=== PATIENT | female | born 1965 | race African-American/Black ===

== ENCOUNTER 2020-06-12 16:09 | Inpatient (IN) ==
[2020-06-12 17:58] LABS: Eosinophils % 0.5 % (0.00-10.9); Immature Granulocytes Absolute 0.06 #; Lymphocytes # 0.3 10*3/uL (1.4-4.0); Lymphocytes % 16.6 % (21.3-54.2); Mean Corpuscular HGB Conc 29.7 GM/DL (32-36); Monocytes % 4.5 % (1.7-12.7); NRBC # 0.04 10*3/uL; Neutrophils % 75.4 % (38.7-73.9); Red Blood Count 1.32 MC/CUMM (3.8-5.5)
[2020-06-12 18:04] LABS: INR 1.1; PT Patient Result 12.2 SECS (9.8-11.9); Partial Thromboplastin Time 34.5 SECS (23.9-33.8)
[2020-06-12 18:13] LABS: Albumin 2.8 G/DL (3.4-5.0); Bilirubin,Total 0.7 MG/DL (0.2-1.0); Calcium 8.5 MG/DL (8.5-10.1); Hematocrit 12.8 VOL% (35.7-47.0); Hemoglobin 3.8 GM/DL (12.0-16.0); Potassium 3.7 MMOL/L (3.5-5.1); Total Protein 5.9 G/DL (6.4-8.3)
[2020-06-12 18:14] LABS: Platelet Count 24 T/CUMM (130-400)
[2020-06-12] MEDS ORDERED: ONDANSETRON 4 MG/2 ML VIAL IV STA (18:14)
[2020-06-12] MEDS ORDERED: FUROSEMIDE 40 MG/4 ML VIAL IV STA (18:14)
[2020-06-12] MEDS ORDERED: SODIUM CHLORIDE 0.9% 500 ML IV STA (18:17)
[2020-06-12 18:29] LABS: Anisocytosis 1+; Band Neutrophils 2 % (0-10); Hypochromasia 3+; Lymphocytes 17 % (20-55); Segmented Neutrophils 77 % (50-85); Total Cells Counted 100
[2020-06-12 18:30] LABS: Basophilic Stippling Few; Platelet Estimate Decreased; Polychromasia 1+; Tear Drop Cells Few
[2020-06-12 18:34] LABS: Troponin I < 0.015 NG/ML (0.00-0.045)
[2020-06-12] MEDS ORDERED: SODIUM CHLORIDE 0.9% 1,000 ML IV PRN (19:11)
[2020-06-12] MEDS ORDERED: GLUCAGON 1 MG VIAL IM PRN ×2 (19:13)
[2020-06-12] MEDS ORDERED: DEXTROSE 50% 25 GM/50 ML VIAL IV PRN ×2 (19:13)
[2020-06-12 21:38] LABS: Bacteria,Urine Occasional /HPF (Few); Bilirubin,Urine Negative (Negative); Blood, Urine Negative (Negative); Glucose,Urine (UA) Negative (Negative); Hyaline Casts,Urine 3 /LPF (0-3); Ketones,Urine Negative (Negative); Mucus,Urine Occasional /LPF (Occasional); Nitrite,Urine Negative (Negative); Protein,Urine Negative; RBC,Urine 1 /HPF (0-4); Squamous Epithelial Cell,Urine Occasional /HPF (0-10); Urine Appearance CLEAR (Clear); Urine Color Straw (Yellow); Urine Specific Gravity 1.011 (1.001-1.035); Urine Urobilinogen < 2.0 EU/DL (0.2-1.0); WBC,Urine 1 /HPF (0-6)
[2020-06-12] MEDS: INSULIN LISPRO 100 UNIT/ML SUBCUT SCH (23:30)
[2020-06-13] MEDS: oxyCODONE ER 20 MG TABLET PO SCH ×3 (00:28→21:00)
[2020-06-13 05:10] LABS: Basophils % 0.4 % (0.0-0.8); Eosinophils % 0.4 % (0.00-10.9); Hematocrit 19.5 VOL% (35.7-47.0); Immature Granulocytes % 2.6 %; Immature Granulocytes Absolute 0.06 #; Lymphocytes # 0.4 10*3/uL (1.4-4.0); Lymphocytes % 17.4 % (21.3-54.2); Mean Corpuscular HGB Conc 31.8 GM/DL (32-36); Mean Corpuscular Volume 93.8 FL (87-102); Monocytes % 5.7 % (1.7-12.7); NRBC # 0.11 10*3/uL; Neutrophils % 73.5 % (38.7-73.9); Red Cell Distribution Width 19.2 % (9.3-17.3); White Blood Count 2.3 T/CUMM (4-12)
[2020-06-13 05:12] LABS: Red Blood Count 2.08 MC/CUMM (3.8-5.5)
[2020-06-13 05:14] LABS: Hemoglobin 6.2 GM/DL (12.0-16.0); Platelet Count 25 T/CUMM (130-400)
[2020-06-13 05:30] LABS: Eosinophils 1 % (0-10); Hypochromasia 2+; Lymphocytes 10 % (20-55); Microcytosis 1+; Nucleated Red Blood Cells 8 (0-5); Platelet Estimate Decreased; Segmented Neutrophils 80 % (50-85); Total Cells Counted 100
[2020-06-13 05:51] LABS: Calcium 8.6 MG/DL (8.5-10.1); Osmolality,Calculated 273.8 MOS/KG (273-304); Potassium 3.3 MMOL/L (3.5-5.1); Thyroid Stimulating Hormone 10.4 uIU/ml (0.358-3.74)
[2020-06-13] MEDS ORDERED: SODIUM CHLORIDE 0.9% 1,000 ML IV PRN ×2 (07:05→12:32)
[2020-06-13] MEDS: LEVOTHYROXINE 50 MCG TABLET PO SCH (07:10)
[2020-06-13] MEDS: INSULIN LISPRO 100 UNIT/ML SUBCUT SCH ×4 (09:07→21:00)
[2020-06-13] MEDS: DOXAZOSIN 1 MG TABLET PO SCH (09:14)
[2020-06-13] MEDS: atenoloL 50 MG TABLET PO SCH (09:14)
[2020-06-13] MEDS: PANTOPRAZOLE 40 MG TABLET PO SCH (09:14)
[2020-06-13 09:33] LABS: Hematocrit 26.5 VOL% (35.7-47.0)
[2020-06-13 09:38] LABS: Hemoglobin 8.7 GM/DL (12.0-16.0)
[2020-06-14 06:01] LABS: Basophils % 0.7 % (0.0-0.8); Eosinophils % 0.7 % (0.00-10.9); Hematocrit 26.2 VOL% (35.7-47.0); Hemoglobin 8.4 GM/DL (12.0-16.0); Immature Granulocytes Absolute 0.03 #; Lymphocytes # 0.3 10*3/uL (1.4-4.0); Lymphocytes % 21.3 % (21.3-54.2); Mean Corpuscular HGB Conc 32.1 GM/DL (32-36); Mean Platelet Volume 10.1 FL (9.6-12.0); NRBC # 0.08 10*3/uL; Neutrophils % 69.3 % (38.7-73.9); Platelet Count 61 T/CUMM (130-400); Red Blood Count 2.88 MC/CUMM (3.8-5.5); Red Cell Distribution Width 18.6 % (9.3-17.3); White Blood Count 1.5 T/CUMM (4-12)
[2020-06-14 06:30] LABS: Albumin 2.8 G/DL (3.4-5.0); Bilirubin,Direct 0.38 MG/DL (0.0-0.20); Bilirubin,Indirect 0.4 MG/DL (0.0-1.0); Bilirubin,Total 0.8 MG/DL (0.2-1.0); Calcium 8.4 MG/DL (8.5-10.1); Free T4 (Free Thyroxine) 1.34 NG/DL (0.76-1.46); Osmolality,Calculated 273.8 MOS/KG (273-304); Potassium 3.7 MMOL/L (3.5-5.1); Total Protein 6.3 G/DL (6.4-8.3)
[2020-06-14 06:44] LABS: Eosinophils 2 % (0-10); Hypochromasia 2+; Lymphocytes 20 % (20-55); Microcytosis 1+; Nucleated Red Blood Cells 2 (0-5); Ovalocytes Slight; Platelet Estimate Decreased; Segmented Neutrophils 68 % (50-85); Total Cells Counted 100
[2020-06-14] MEDS: LEVOTHYROXINE 50 MCG TABLET PO SCH (06:44)
[2020-06-14] MEDS: INSULIN LISPRO 100 UNIT/ML SUBCUT SCH ×4 (07:53→22:12)
[2020-06-14] MEDS: atenoloL 50 MG TABLET PO SCH (13:54)
[2020-06-14] MEDS: DOXAZOSIN 1 MG TABLET PO SCH (13:54)
[2020-06-14] MEDS: PANTOPRAZOLE 40 MG TABLET PO SCH (13:54)
[2020-06-14] MEDS: oxyCODONE ER 20 MG TABLET PO SCH ×2 (13:58→22:02)
[2020-06-14] MEDS: POLYETHYLENE GLYCOL POWDER 17 GM PACK PO PRN (22:02)
[2020-06-15 06:31] LABS: Hematocrit 22.7 VOL% (35.7-47.0); Immature Granulocytes Absolute 0.03 #; Lymphocytes # 0.2 10*3/uL (1.4-4.0); Mean Corpuscular HGB Conc 31.7 GM/DL (32-36); Mean Corpuscular Volume 92.7 FL (87-102); Mean Platelet Volume 11.3 FL (9.6-12.0); NRBC # 0.07 10*3/uL; Red Blood Count 2.45 MC/CUMM (3.8-5.5); Red Cell Distribution Width 18.8 % (9.3-17.3)
[2020-06-15 06:37] LABS: Hemoglobin 7.2 GM/DL (12.0-16.0); Platelet Count 53 T/CUMM (130-400)
[2020-06-15] MEDS: LEVOTHYROXINE 50 MCG TABLET PO SCH (07:09)
[2020-06-15 08:14] LABS: Lymphocytes 50 % (20-55); Segmented Neutrophils 50 % (50-85); Total Cells Counted 100
[2020-06-15 08:15] LABS: Hypochromasia 3+; Ovalocytes Few; Platelet Estimate Decreased; Polychromasia Slight; Reactive Lymphocytes Few
[2020-06-15] MEDS: DOXAZOSIN 1 MG TABLET PO SCH (08:33)
[2020-06-15] MEDS: atenoloL 50 MG TABLET PO SCH (08:33)
[2020-06-15] MEDS: PANTOPRAZOLE 40 MG TABLET PO SCH (08:33)
[2020-06-15] MEDS: oxyCODONE IR 5 MG TABLET PO PRN (08:35)
[2020-06-15] MEDS: INSULIN LISPRO 100 UNIT/ML SUBCUT SCH ×4 (08:40→20:50)
[2020-06-15] MEDS: oxyCODONE ER 20 MG TABLET PO SCH ×2 (08:41→20:50)
[2020-06-15] MEDS ORDERED: SODIUM CHLORIDE 0.9% 1,000 ML IV PRN ×2 (08:54→10:55)
[2020-06-15] MEDS: FILGRASTIM-SNDZ 300 MCG/0.5 ML SYRINGE SUBCUT SCH (11:59)
[2020-06-15] MEDS ORDERED: ONDANSETRON 4 MG/2 ML VIAL ONE (19:56)
[2020-06-15] MEDS: ONDANSETRON 4 MG/2 ML VIAL IV PRN ×2 (19:56→22:57)
[2020-06-16 05:21] LABS: Hematocrit 31.3 VOL% (35.7-47.0); Hemoglobin 9.8 GM/DL (12.0-16.0); Immature Granulocytes Absolute 0.08 #; Lymphocytes # 0.1 10*3/uL (1.4-4.0); Mean Corpuscular HGB Conc 31.3 GM/DL (32-36); Mean Corpuscular Volume 93.4 FL (87-102); Mean Platelet Volume 10.6 FL (9.6-12.0); NRBC # 0.06 10*3/uL; Platelet Count 48 T/CUMM (130-400); Red Blood Count 3.35 MC/CUMM (3.8-5.5); Red Cell Distribution Width 17.3 % (9.3-17.3)
[2020-06-16 05:28] LABS: Calcium 7.8 MG/DL (8.5-10.1); Potassium 3.6 MMOL/L (3.5-5.1)
[2020-06-16] MEDS: LEVOTHYROXINE 50 MCG TABLET PO SCH (07:08)
[2020-06-16] MEDS: PROMETHAZINE INJ 25 MG in SODIUM CHLORIDE 0.9% 50 ML IV PRN (07:21)
[2020-06-16] MEDS: INSULIN LISPRO 100 UNIT/ML SUBCUT SCH ×4 (08:22→22:34)
[2020-06-16 08:31] LABS: Band Neutrophils 14 % (0-10); Lymphocytes 10 % (20-55); Nucleated Red Blood Cells 1 (0-5); Polychromasia Slight; Schistocytes Few; Segmented Neutrophils 66 % (50-85); Total Cells Counted 100
[2020-06-16 08:32] LABS: Hypochromasia 2+; Ovalocytes Few; Platelet Estimate Decreased
[2020-06-16] MEDS: DOXAZOSIN 1 MG TABLET PO SCH (09:45)
[2020-06-16] MEDS: atenoloL 50 MG TABLET PO SCH (09:45)
[2020-06-16] MEDS: oxyCODONE ER 20 MG TABLET PO SCH ×2 (09:45→20:48)
[2020-06-16] MEDS: PANTOPRAZOLE 40 MG TABLET PO SCH (09:45)
[2020-06-16] MEDS: CEFEPIME 1,000 MG in SODIUM CHLORIDE 0.9% 100 ML IV SCH ×3 (09:47→21:00)
[2020-06-16] MEDS: FILGRASTIM-SNDZ 300 MCG/0.5 ML SYRINGE SUBCUT SCH ×2 (12:04→13:42)
[2020-06-17] MEDS: CEFEPIME 1,000 MG in SODIUM CHLORIDE 0.9% 100 ML IV SCH ×4 (04:35→22:04)
[2020-06-17 05:48] LABS: Basophils % 0.8 % (0.0-0.8); Eosinophils % 0.8 % (0.00-10.9); Hematocrit 32.2 VOL% (35.7-47.0); Hemoglobin 10.2 GM/DL (12.0-16.0); Immature Granulocytes % 19.7 %; Immature Granulocytes Absolute 0.24 #; Lymphocytes # 0.2 10*3/uL (1.4-4.0); Mean Corpuscular HGB Conc 31.7 GM/DL (32-36); Mean Corpuscular Volume 93.3 FL (87-102); Mean Platelet Volume 9.7 FL (9.6-12.0); Monocytes % 13.9 % (1.7-12.7); NRBC # 0.02 10*3/uL; Neutrophils % 46.8 % (38.7-73.9); Platelet Count 50 T/CUMM (130-400); Red Blood Count 3.45 MC/CUMM (3.8-5.5); Red Cell Distribution Width 17.6 % (9.3-17.3); White Blood Count 1.2 T/CUMM (4-12)
[2020-06-17 06:07] LABS: Calcium 8.1 MG/DL (8.5-10.1); Osmolality,Calculated 268.1 MOS/KG (273-304); Potassium 3.7 MMOL/L (3.5-5.1)
[2020-06-17 06:14] LABS: Band Neutrophils 5 % (0-10); Eosinophils 1 % (0-10); Hypochromasia 1+; Lymphocytes 16 % (20-55); Microcytosis 1+; Nucleated Red Blood Cells 6 (0-5); Ovalocytes Slight; Platelet Estimate Decreased; Segmented Neutrophils 68 % (50-85); Total Cells Counted 100
[2020-06-17] MEDS: LEVOTHYROXINE 50 MCG TABLET PO SCH (07:23)
[2020-06-17] MEDS: INSULIN LISPRO 100 UNIT/ML SUBCUT SCH ×3 (08:58→23:41)
[2020-06-17] MEDS: oxyCODONE ER 20 MG TABLET PO SCH ×2 (09:30→22:03)
[2020-06-17] MEDS: POLYETHYLENE GLYCOL POWDER 17 GM PACK PO PRN (09:30)
[2020-06-17] MEDS: PANTOPRAZOLE 40 MG TABLET PO SCH (09:30)
[2020-06-17] MEDS: DOXAZOSIN 1 MG TABLET PO SCH (09:30)
[2020-06-17] MEDS: atenoloL 50 MG TABLET PO SCH (09:33)
[2020-06-17] MEDS: FILGRASTIM-SNDZ 300 MCG/0.5 ML SYRINGE SUBCUT SCH (10:01)
[2020-06-18] MEDS: ONDANSETRON 4 MG/2 ML VIAL IV PRN (03:54)
[2020-06-18 04:16] LABS: Basophils % 0.8 % (0.0-0.8); Eosinophils % 0.8 % (0.00-10.9); Hematocrit 30.6 VOL% (35.7-47.0); Immature Granulocytes % 13.1 %; Immature Granulocytes Absolute 0.17 #; Lymphocytes # 0.2 10*3/uL (1.4-4.0); Lymphocytes % 16.9 % (21.3-54.2); Mean Corpuscular HGB Conc 32.7 GM/DL (32-36); Mean Corpuscular Volume 90.8 FL (87-102); Mean Platelet Volume 13.3 FL (9.6-12.0); Monocytes % 16.9 % (1.7-12.7); NRBC # 0.06 10*3/uL; Neutrophils % 51.5 % (38.7-73.9); Platelet Count 43 T/CUMM (130-400); Red Blood Count 3.37 MC/CUMM (3.8-5.5); Red Cell Distribution Width 17.8 % (9.3-17.3); White Blood Count 1.3 T/CUMM (4-12)
[2020-06-18] MEDS: PROMETHAZINE INJ 25 MG in SODIUM CHLORIDE 0.9% 50 ML IV PRN (04:29)
[2020-06-18 04:44] LABS: Atypical Lymphocytes Few; Hypochromasia 1+; Lymphocytes 15 % (20-55); Microcytosis 1+; Nucleated Red Blood Cells 2 (0-5); Ovalocytes Slight; Platelet Estimate Decreased; Segmented Neutrophils 64 % (50-85); Total Cells Counted 100
[2020-06-18] MEDS: CEFEPIME 1,000 MG in SODIUM CHLORIDE 0.9% 100 ML IV SCH ×4 (05:03→21:44)
[2020-06-18] MEDS: LEVOTHYROXINE 50 MCG TABLET PO SCH (06:21)
[2020-06-18] MEDS: FILGRASTIM-SNDZ 300 MCG/0.5 ML SYRINGE SUBCUT SCH (09:44)
[2020-06-18] MEDS: PANTOPRAZOLE 40 MG TABLET PO SCH (09:44)
[2020-06-18] MEDS: atenoloL 50 MG TABLET PO SCH (09:45)
[2020-06-18] MEDS: DOXAZOSIN 1 MG TABLET PO SCH (09:45)
[2020-06-18] MEDS: oxyCODONE ER 20 MG TABLET PO SCH ×3 (09:50→21:43)
[2020-06-18] MEDS: INSULIN LISPRO 100 UNIT/ML SUBCUT SCH ×4 (09:50→22:45)
[2020-06-18] MEDS: POLYETHYLENE GLYCOL POWDER 17 GM PACK PO PRN (09:50)
[2020-06-18] MEDS: oxyCODONE IR 5 MG TABLET PO PRN (23:46)
[2020-06-19] MEDS: CEFEPIME 1,000 MG in SODIUM CHLORIDE 0.9% 100 ML IV SCH ×4 (04:45→21:00)
[2020-06-19] MEDS: LEVOTHYROXINE 50 MCG TABLET PO SCH (05:24)
[2020-06-19 06:21] LABS: Basophils % 0.8 % (0.0-0.8); Eosinophils % 0.4 % (0.00-10.9); Hematocrit 32.3 VOL% (35.7-47.0); Hemoglobin 10.4 GM/DL (12.0-16.0); Immature Granulocytes % 1.7 %; Immature Granulocytes Absolute 0.04 #; Lymphocytes # 0.4 10*3/uL (1.4-4.0); Lymphocytes % 14.9 % (21.3-54.2); Mean Corpuscular HGB Conc 32.2 GM/DL (32-36); Mean Corpuscular Volume 92.8 FL (87-102); Mean Platelet Volume 11.8 FL (9.6-12.0); NRBC # 0.04 10*3/uL; Neutrophils % 60.2 % (38.7-73.9); Red Blood Count 3.48 MC/CUMM (3.8-5.5); Red Cell Distribution Width 18.2 % (9.3-17.3); White Blood Count 2.4 T/CUMM (4-12)
[2020-06-19 06:24] LABS: Platelet Count 49 T/CUMM (130-400)
[2020-06-19 06:41] LABS: Band Neutrophils 5 % (0-10); Calcium 7.9 MG/DL (8.5-10.1); Hypochromasia 1+; Lymphocytes 24 % (20-55); Microcytosis 1+; Nucleated Red Blood Cells 2 (0-5); Osmolality,Calculated 266.2 MOS/KG (273-304); Platelet Estimate Decreased; Potassium 3.9 MMOL/L (3.5-5.1); Segmented Neutrophils 49 % (50-85); Total Cells Counted 100
[2020-06-19 06:42] LABS: Atypical Lymphocytes Few
[2020-06-19] MEDS: INSULIN LISPRO 100 UNIT/ML SUBCUT SCH ×4 (09:50→20:02)
[2020-06-19] MEDS: DOXAZOSIN 1 MG TABLET PO SCH (09:55)
[2020-06-19] MEDS: atenoloL 50 MG TABLET PO SCH (09:56)
[2020-06-19] MEDS: oxyCODONE ER 20 MG TABLET PO SCH ×2 (10:04→20:56)
[2020-06-19] MEDS: PANTOPRAZOLE 40 MG TABLET PO SCH (10:05)
[2020-06-19] MEDS ORDERED: FILGRASTIM-SNDZ 300 MCG/0.5 ML SYRINGE SUBCUT SCH (15:00)
[2020-06-19] MEDS: FAMOTIDINE 20 MG TABLET PO SCH (20:54)
[2020-06-20] MEDS: CEFEPIME 1,000 MG in SODIUM CHLORIDE 0.9% 100 ML IV SCH ×5 (03:54→21:05)
[2020-06-20] MEDS: PROMETHAZINE INJ 25 MG in SODIUM CHLORIDE 0.9% 50 ML IV PRN ×3 (04:24→21:56)
[2020-06-20 06:44] LABS: Basophils % 0.6 % (0.0-0.8); Eosinophils % 0.4 % (0.00-10.9); Hematocrit 30.6 VOL% (35.7-47.0); Hemoglobin 9.8 GM/DL (12.0-16.0); Immature Granulocytes % 7.5 %; Immature Granulocytes Absolute 0.38 #; Lymphocytes # 0.4 10*3/uL (1.4-4.0); Lymphocytes % 7.1 % (21.3-54.2); Mean Corpuscular Volume 91.9 FL (87-102); Mean Platelet Volume 12.2 FL (9.6-12.0); Monocytes % 12.9 % (1.7-12.7); NRBC # 0.04 10*3/uL; Neutrophils % 71.5 % (38.7-73.9); Red Blood Count 3.33 MC/CUMM (3.8-5.5); Red Cell Distribution Width 18.2 % (9.3-17.3); White Blood Count 5.1 T/CUMM (4-12)
[2020-06-20] MEDS: LEVOTHYROXINE 50 MCG TABLET PO SCH (06:45)
[2020-06-20 06:47] LABS: Platelet Count 51 T/CUMM (130-400)
[2020-06-20 07:09] LABS: Calcium 7.6 MG/DL (8.5-10.1); Osmolality,Calculated 273.7 MOS/KG (273-304); Potassium 4.1 MMOL/L (3.5-5.1)
[2020-06-20 07:13] LABS: Band Neutrophils 9 % (0-10); Lymphocytes 12 % (20-55); Myelocytes 1 %; Platelet Estimate Decreased; Segmented Neutrophils 70 % (50-85); Total Cells Counted 100
[2020-06-20 07:14] LABS: Hypochromasia 1+; Microcytosis 1+
[2020-06-20] MEDS: INSULIN LISPRO 100 UNIT/ML SUBCUT SCH ×4 (07:16→20:54)
[2020-06-20] MEDS: DOXAZOSIN 1 MG TABLET PO SCH (08:30)
[2020-06-20] MEDS: atenoloL 50 MG TABLET PO SCH ×2 (08:30→22:15)
[2020-06-20] MEDS: PANTOPRAZOLE 40 MG TABLET PO SCH (08:31)
[2020-06-20] MEDS: oxyCODONE ER 20 MG TABLET PO SCH ×2 (08:31→20:55)
[2020-06-20] MEDS: FAMOTIDINE 20 MG TABLET PO SCH ×2 (08:31→20:56)
[2020-06-20] MEDS ORDERED: methylPREDNISolone SOD SUC 125 MG/2 ML VIAL IV PRN (12:00)
[2020-06-20] MEDS ORDERED: ACETAMINOPHEN 325 MG TABLET PO PRN (12:00)
[2020-06-20] MEDS ORDERED: MECLIZINE 25 MG TABLET PO PRN (12:00)
[2020-06-20] MEDS ORDERED: diphenhydrAMINE 50 MG/1 ML VIAL IV PRN ×2 (12:00)
[2020-06-20] MEDS ORDERED: ONDANSETRON 4 MG/2 ML VIAL IV PRN (12:00)
[2020-06-20] MEDS ORDERED: SODIUM CHLORIDE 0.9% 200 ML IV SCH ×2 (12:00→16:00)
[2020-06-20] MEDS: SODIUM CHLORIDE 0.9% 1,000 ML IV SCH (12:22)
[2020-06-20] MEDS ORDERED: DEXAMETHASONE 4 MG TABLET PO ONE (14:00)
[2020-06-20] MEDS ORDERED: [UNRECOGNIZED DRUG - OTHER] IV ONE (15:00)
[2020-06-21] MEDS: CEFEPIME 1,000 MG in SODIUM CHLORIDE 0.9% 100 ML IV SCH ×4 (03:51→21:26)
[2020-06-21 05:45] LABS: Basophils % 0.4 % (0.0-0.8); Eosinophils % 0.1 % (0.00-10.9); Hematocrit 30.6 VOL% (35.7-47.0); Hemoglobin 9.4 GM/DL (12.0-16.0); Immature Granulocytes % 9.2 %; Immature Granulocytes Absolute 0.77 #; Lymphocytes # 0.5 10*3/uL (1.4-4.0); Lymphocytes % 6.2 % (21.3-54.2); Mean Corpuscular HGB Conc 30.7 GM/DL (32-36); Mean Corpuscular Volume 94.2 FL (87-102); Mean Platelet Volume 11.2 FL (9.6-12.0); Monocytes % 8.2 % (1.7-12.7); NRBC # 0.04 10*3/uL; Neutrophils % 75.9 % (38.7-73.9); Platelet Count 47 T/CUMM (130-400); Red Blood Count 3.25 MC/CUMM (3.8-5.5); Red Cell Distribution Width 18.4 % (9.3-17.3); White Blood Count 8.3 T/CUMM (4-12)
[2020-06-21 06:10] LABS: Calcium 7.6 MG/DL (8.5-10.1); Osmolality,Calculated 267.2 MOS/KG (273-304); Potassium 4.2 MMOL/L (3.5-5.1)
[2020-06-21 06:14] LABS: Anisocytosis 2+; Band Neutrophils 30 % (0-10); Lymphocytes 5 % (20-55); Metamyelocytes 4 %; Myelocytes 1 %; Nucleated Red Blood Cells 1 (0-5); Platelet Estimate Decreased; Segmented Neutrophils 57 % (50-85); Smudge Cells Few; Tear Drop Cells Few; Total Cells Counted 100
[2020-06-21 06:15] LABS: Burr Cells Few; Ovalocytes Few; Poikilocytosis 1+
[2020-06-21] MEDS: LEVOTHYROXINE 50 MCG TABLET PO SCH (06:41)
[2020-06-21] MEDS: ZINC SULFATE 220 MG CAPSULE PO SCH (08:27)
[2020-06-21] MEDS: DOXAZOSIN 1 MG TABLET PO SCH (08:27)
[2020-06-21] MEDS: PANTOPRAZOLE 40 MG TABLET PO SCH ×2 (08:27→21:25)
[2020-06-21] MEDS: FAMOTIDINE 20 MG TABLET PO SCH (08:27)
[2020-06-21] MEDS: atenoloL 50 MG TABLET PO SCH (08:27)
[2020-06-21] MEDS: oxyCODONE ER 20 MG TABLET PO SCH ×2 (08:27→21:24)
[2020-06-21] MEDS: INSULIN LISPRO 100 UNIT/ML SUBCUT SCH ×4 (08:28→21:00)
[2020-06-21] MEDS: SODIUM CHLORIDE 0.9% 1,000 ML IV SCH (08:28)
[2020-06-21] MEDS: PROMETHAZINE INJ 25 MG in SODIUM CHLORIDE 0.9% 50 ML IV PRN (09:58)
[2020-06-21] MEDS: HYDROCORTISONE 25 MG SUPP RECTAL SCH (21:24)
[2020-06-21] MEDS: CHOLECALCIFEROL 400 UNIT TABLET PO SCH (21:25)
[2020-06-21] MEDS: ASCORBIC ACID 500 MG TABLET PO SCH (21:28)
[2020-06-22] MEDS: SODIUM CHLORIDE 0.9% 1,000 ML IV SCH ×2 (02:31→10:17)
[2020-06-22] MEDS: CEFEPIME 1,000 MG in SODIUM CHLORIDE 0.9% 100 ML IV SCH ×4 (04:23→21:47)
[2020-06-22 05:47] LABS: Basophils # 0.1 10*3/uL (0.0-0.2); Basophils % 0.6 % (0.0-0.8); Eosinophils % 0.1 % (0.00-10.9); Hematocrit 27.3 VOL% (35.7-47.0); Hemoglobin 8.6 GM/DL (12.0-16.0); Immature Granulocytes % 8.5 %; Immature Granulocytes Absolute 0.75 #; Lymphocytes # 0.6 10*3/uL (1.4-4.0); Lymphocytes % 6.7 % (21.3-54.2); Mean Corpuscular HGB Conc 31.5 GM/DL (32-36); Mean Corpuscular Volume 95.1 FL (87-102); Monocytes % 8.8 % (1.7-12.7); NRBC # 0.07 10*3/uL; Neutrophils % 75.3 % (38.7-73.9); Red Blood Count 2.87 MC/CUMM (3.8-5.5); Red Cell Distribution Width 18.8 % (9.3-17.3); White Blood Count 8.8 T/CUMM (4-12)
[2020-06-22 05:59] LABS: Platelet Count 47 T/CUMM (130-400)
[2020-06-22 06:11] LABS: Hypochromasia 1+; Lymphocytes 6 % (20-55); Microcytosis 1+; Platelet Estimate Decreased; Segmented Neutrophils 88 % (50-85); Total Cells Counted 100
[2020-06-22] MEDS: LEVOTHYROXINE 75 MCG TABLET PO SCH (06:11)
[2020-06-22 06:12] LABS: Calcium 7.6 MG/DL (8.5-10.1); Osmolality,Calculated 276.5 MOS/KG (273-304); Potassium 3.9 MMOL/L (3.5-5.1)
[2020-06-22] MEDS: INSULIN LISPRO 100 UNIT/ML SUBCUT SCH ×4 (08:10→22:15)
[2020-06-22] MEDS: DOXAZOSIN 1 MG TABLET PO SCH (08:10)
[2020-06-22] MEDS: oxyCODONE ER 20 MG TABLET PO SCH ×2 (08:10→22:45)
[2020-06-22] MEDS: PANTOPRAZOLE 40 MG TABLET PO SCH ×2 (08:11→21:47)
[2020-06-22] MEDS: atenoloL 50 MG TABLET PO SCH (08:11)
[2020-06-22] MEDS: ZINC SULFATE 220 MG CAPSULE PO SCH (08:11)
[2020-06-22] MEDS: ASCORBIC ACID 500 MG TABLET PO SCH ×2 (08:11→21:46)
[2020-06-22] MEDS: CHOLECALCIFEROL 400 UNIT TABLET PO SCH ×2 (08:12→21:46)
[2020-06-22] MEDS: HYDROCORTISONE 25 MG SUPP RECTAL SCH ×2 (10:17→21:47)
[2020-06-22] MEDS: PROMETHAZINE INJ 25 MG in SODIUM CHLORIDE 0.9% 50 ML IV PRN ×2 (12:15→23:28)
[2020-06-22] MEDS: oxyCODONE IR 5 MG TABLET PO PRN (14:09)
[2020-06-22] MEDS ORDERED: FUROSEMIDE 40 MG/4 ML VIAL IV ONE (17:32)
[2020-06-22] MEDS ORDERED: CLORAZEPATE 3.75 MG TABLET PO SCH (21:00)
[2020-06-23] MEDS: CEFEPIME 1,000 MG in SODIUM CHLORIDE 0.9% 100 ML IV SCH ×2 (04:34→10:31)
[2020-06-23] MEDS: LEVOTHYROXINE 75 MCG TABLET PO SCH (05:49)
[2020-06-23 05:51] LABS: Basophils % 0.2 % (0.0-0.8); Eosinophils % 0.1 % (0.00-10.9); Hematocrit 27.2 VOL% (35.7-47.0); Hemoglobin 8.5 GM/DL (12.0-16.0); Immature Granulocytes % 8.8 %; Immature Granulocytes Absolute 0.72 #; Lymphocytes # 0.7 10*3/uL (1.4-4.0); Lymphocytes % 7.9 % (21.3-54.2); Mean Corpuscular HGB Conc 31.3 GM/DL (32-36); Mean Corpuscular Volume 93.8 FL (87-102); Mean Platelet Volume 9.9 FL (9.6-12.0); Monocytes % 7.8 % (1.7-12.7); NRBC # 0.07 10*3/uL; Neutrophils % 75.2 % (38.7-73.9); Red Cell Distribution Width 19.1 % (9.3-17.3); White Blood Count 8.2 T/CUMM (4-12)
[2020-06-23 05:56] LABS: Platelet Count 42 T/CUMM (130-400)
[2020-06-23 06:26] LABS: Calcium 7.4 MG/DL (8.5-10.1); Osmolality,Calculated 274.5 MOS/KG (273-304); Potassium 3.8 MMOL/L (3.5-5.1)
[2020-06-23 06:27] LABS: Band Neutrophils 5 % (0-10); Lymphocytes 10 % (20-55); Metamyelocytes 1 %; Myelocytes 2 %; Nucleated Red Blood Cells 1 (0-5); Platelet Estimate Decreased; Segmented Neutrophils 80 % (50-85); Total Cells Counted 100
[2020-06-23 06:28] LABS: Hypochromasia Slight
[2020-06-23] MEDS: atenoloL 50 MG TABLET PO SCH (08:18)
[2020-06-23] MEDS: oxyCODONE ER 20 MG TABLET PO SCH (08:18)
[2020-06-23] MEDS: DOXAZOSIN 1 MG TABLET PO SCH (08:18)
[2020-06-23] MEDS: ZINC SULFATE 220 MG CAPSULE PO SCH (08:19)
[2020-06-23] MEDS: ASCORBIC ACID 500 MG TABLET PO SCH (08:19)
[2020-06-23] MEDS: PANTOPRAZOLE 40 MG TABLET PO SCH (08:19)
[2020-06-23] MEDS: HYDROCORTISONE 25 MG SUPP RECTAL SCH (08:19)
[2020-06-23] MEDS: INSULIN LISPRO 100 UNIT/ML SUBCUT SCH ×2 (08:19→11:27)
[2020-06-23] MEDS: CHOLECALCIFEROL 400 UNIT TABLET PO SCH (08:19)
[2020-06-23 11:01] VITALS: BP 109/67
[2020-06-23] MEDS ORDERED: HEPARIN LOCK FLUSH 500 UNIT/5 ML SYRINGE IV ONE (11:43)
== END 2020-06-23 13:25 | disposition home or self-care (01) | DRG 840 ==
LOC: N.ED 16:09 → SUATTDRO 19:13 → N.EDINP 19:13 → N.TELES 20:37 → N.4E 06-17 12:06 → N.2E 06-19 18:09
PROVIDERS: ADMIT Internal Medicine; ATTEND Internal Medicine

== ENCOUNTER 2020-07-15 14:55 | Inpatient (IN) ==
[2020-07-15] MEDS ORDERED: SODIUM CHLORIDE 0.9% 500 ML IV STA (15:38)
[2020-07-15] MEDS ORDERED: ONDANSETRON 4 MG/2 ML VIAL IV STA (15:43)
[2020-07-15] MEDS ORDERED: HYDROmorphone 2 MG/1 ML VIAL IV STA (15:43)
[2020-07-15 16:36] LABS: Basophils % 0.1 % (0.0-0.8); Eosinophils % 0.2 % (0.00-10.9); Immature Granulocytes % 4.9 %; Immature Granulocytes Absolute 0.52 #; Lymphocytes # 0.5 10*3/uL (1.4-4.0); Lymphocytes % 4.3 % (21.3-54.2); Mean Corpuscular HGB Conc 30.7 GM/DL (32-36); Monocytes % 5.6 % (1.7-12.7); NRBC # 0.48 10*3/uL; Neutrophils % 84.9 % (38.7-73.9); Red Blood Count 1.53 MC/CUMM (3.8-5.5); Red Cell Distribution Width 27.2 % (9.3-17.3); White Blood Count 10.5 T/CUMM (4-12)
[2020-07-15 17:02] LABS: Hematocrit 15.3 VOL% (35.7-47.0); Hemoglobin 4.7 GM/DL (12.0-16.0); Platelet Count 20 T/CUMM (130-400)
[2020-07-15 17:11] LABS: Calcium 7.6 MG/DL (8.5-10.1); Osmolality,Calculated 274.9 MOS/KG (273-304); Potassium 5.3 MMOL/L (3.5-5.1)
[2020-07-15] MEDS ORDERED: DEXTROSE 50% 25 GM/50 ML VIAL IV PRN (17:55)
[2020-07-15] MEDS ORDERED: GLUCAGON 1 MG VIAL IM PRN (17:55)
[2020-07-15] MEDS ORDERED: ONDANSETRON 4 MG/2 ML VIAL IV PRN (17:55)
[2020-07-15] MEDS ORDERED: SODIUM CHLORIDE 0.9% 1,000 ML IV PRN ×2 (17:57→19:14)
[2020-07-15 18:08] LABS: Band Neutrophils 2 % (0-10); Hypochromasia Slight; Lymphocytes 9 % (20-55); Macrocytosis 1+; Nucleated Red Blood Cells 4 (0-5); Platelet Estimate Decreased; Polychromasia Slight; Segmented Neutrophils 86 % (50-85); Total Cells Counted 100
[2020-07-15] MEDS: HYDROmorphone 2 MG/1 ML VIAL IV PRN ×2 (19:14→23:36)
[2020-07-15] MEDS ORDERED: ATENOLOL 100 MG PO SCH (21:00)
[2020-07-15] MEDS: prednisoLONE ACETATE 1% OPH SUSP 5 ML BOTTLE BOTH EYES SCH (21:42)
[2020-07-15] MEDS: GABAPENTIN 300 MG CAPSULE PO SCH (21:42)
[2020-07-15] MEDS: TRAVOPROST 0.004% OPH SOLN 2.5 ML BOTTLE BOTH EYES SCH (21:42)
[2020-07-15] MEDS: SODIUM CHLORIDE 0.9% 1,000 ML IV SCH (21:42)
[2020-07-16] MEDS: HYDROmorphone 2 MG/1 ML VIAL IV PRN ×4 (03:39→17:51)
[2020-07-16] MEDS: LEVOTHYROXINE 75 MCG TABLET PO SCH (05:41)
[2020-07-16 07:49] LABS: Basophils % 0.3 % (0.0-0.8); Eosinophils % 0.1 % (0.00-10.9); Hematocrit 19.9 VOL% (35.7-47.0); Hemoglobin 6.5 GM/DL (12.0-16.0); Immature Granulocytes % 5.4 %; Immature Granulocytes Absolute 0.59 #; Lymphocytes # 0.5 10*3/uL (1.4-4.0); Lymphocytes % 4.9 % (21.3-54.2); Mean Corpuscular HGB Conc 32.7 GM/DL (32-36); Mean Corpuscular Volume 97.1 FL (87-102); NRBC # 0.54 10*3/uL; Neutrophils % 84.3 % (38.7-73.9); Red Blood Count 2.05 MC/CUMM (3.8-5.5); Red Cell Distribution Width 22.2 % (9.3-17.3); White Blood Count 10.9 T/CUMM (4-12)
[2020-07-16 07:57] LABS: Platelet Count 25 T/CUMM (130-400)
[2020-07-16 08:15] LABS: Calcium 7.9 MG/DL (8.5-10.1); Osmolality,Calculated 274.1 MOS/KG (273-304); Potassium 5.7 MMOL/L (3.5-5.1)
[2020-07-16 08:16] LABS: Band Neutrophils 4 % (0-10); Hypochromasia 1+; Lymphocytes 3 % (20-55); Nucleated Red Blood Cells 3 (0-5); Segmented Neutrophils 91 % (50-85); Total Cells Counted 100
[2020-07-16 08:17] LABS: Microcytosis 1+; Ovalocytes Slight
[2020-07-16 08:18] LABS: Polychromasia Slight
[2020-07-16 08:19] LABS: Anisocytosis 1+; Platelet Estimate Decreased; Tear Drop Cells Slight
[2020-07-16] MEDS: prednisoLONE ACETATE 1% OPH SUSP 5 ML BOTTLE BOTH EYES SCH ×4 (08:46→21:18)
[2020-07-16] MEDS: PANTOPRAZOLE 40 MG TABLET PO SCH ×2 (08:52→20:30)
[2020-07-16] MEDS ORDERED: amLODIPine 10 MG TABLET PO SCH (09:00)
[2020-07-16] MEDS ORDERED: PROMETHAZINE 25 MG TABLET PO PRN (09:06)
[2020-07-16] MEDS ORDERED: POLYETHYLENE GLYCOL POWDER 17 GM PACK PO PRN (09:06)
[2020-07-16] MEDS ORDERED: METHOCARBAMOL 750 MG TABLET PO PRN (09:06)
[2020-07-16] MEDS ORDERED: oxyCODONE IR 5 MG TABLET PO PRN (09:06)
[2020-07-16] MEDS ORDERED: CETIRIZINE 10 MG TABLET PO PRN (09:06)
[2020-07-16] MEDS ORDERED: SODIUM CHLORIDE 0.9% 1,000 ML IV ONE (09:08)
[2020-07-16] MEDS ORDERED: SODIUM CHLORIDE 0.9% 1,000 ML IV PRN (10:23)
[2020-07-16] MEDS: SODIUM CHLORIDE 0.9% 1,000 ML IV SCH ×2 (12:27→18:24)
[2020-07-16 16:18] LABS: Hematocrit 21.9 VOL% (35.7-47.0)
[2020-07-16 16:39] LABS: Calcium 7.5 MG/DL (8.5-10.1); Osmolality,Calculated 275.1 MOS/KG (273-304); Potassium 5.6 MMOL/L (3.5-5.1)
[2020-07-16] MEDS: METOPROLOL SUCCINATE XL 25 MG TABLET PO SCH (16:59)
[2020-07-16] MEDS: TRAVOPROST 0.004% OPH SOLN 2.5 ML BOTTLE BOTH EYES SCH (20:28)
[2020-07-16] MEDS: oxyCODONE ER 40 MG TABLET PO SCH (20:30)
[2020-07-16] MEDS: GABAPENTIN 300 MG CAPSULE PO SCH (20:31)
[2020-07-16] MEDS: BRIMONIDINE 0.1% OPH SOLN 5 ML BOTTLE BOTH EYES SCH (20:41)
[2020-07-17 00:55] LABS: Hematocrit 21.7 VOL% (35.7-47.0); Hemoglobin 6.8 GM/DL (12.0-16.0)
[2020-07-17 02:27] LABS: Albumin 1.7 G/DL (3.4-5.0); Bilirubin,Total 7.3 MG/DL (0.2-1.0); Calcium 7.3 MG/DL (8.5-10.1); Osmolality,Calculated 275.9 MOS/KG (273-304); Potassium 5.4 MMOL/L (3.5-5.1); Total Protein 4.6 G/DL (6.4-8.3)
[2020-07-17] MEDS: HYDROmorphone 2 MG/1 ML VIAL IV PRN (02:36)
[2020-07-17] MEDS: SODIUM CHLORIDE 0.9% 1,000 ML IV SCH (04:25)
[2020-07-17] MEDS: LEVOTHYROXINE 75 MCG TABLET PO SCH (05:40)
[2020-07-17 08:22] LABS: Hemoglobin 7.2 GM/DL (12.0-16.0)
[2020-07-17] MEDS: METOPROLOL SUCCINATE XL 25 MG TABLET PO SCH (09:26)
[2020-07-17] MEDS: oxyCODONE ER 40 MG TABLET PO SCH (09:26)
[2020-07-17] MEDS: BRIMONIDINE 0.1% OPH SOLN 5 ML BOTTLE BOTH EYES SCH (09:26)
[2020-07-17] MEDS: prednisoLONE ACETATE 1% OPH SUSP 5 ML BOTTLE BOTH EYES SCH ×2 (09:26→14:46)
[2020-07-17] MEDS: PANTOPRAZOLE 40 MG TABLET PO SCH ×2 (09:26→09:39)
[2020-07-17 16:17] VITALS: BP 111/62
== END 2020-07-17 16:55 | disposition hospice, home (50) | DRG 181 ==
LOC: N.ED 14:55 → SUATTDRO 17:55 → N.EDINP 17:55 → N.4E 18:30
PROVIDERS: ADMIT Emergency Medicine; ATTEND Internal Medicine